=== PATIENT | female | born 1940 | race Two or more races ===

== ENCOUNTER 2022-06-18 11:28 | Inpatient (IN) | payer OTHER ==
[~2022-06-18] VITALS: Ht 162.6 cm; Wt 59.0 kg
[2022-06-18] MEDS ORDERED: PROSCAR5 MG PO (11:48)
--- NOTE | 2022-06-18 11:48 | NUR ---
PTE .SEDADA ESTA VIENE POR UN TRANSFER DEL POR FRACTURA DE CADERA LADO DERECHA
--- NOTE | 2022-06-18 12:19 | NUR ---
PACIENTE EVALUADO POR DR PENALOZA QUIEN ORDENA TARTAMIENTO. NICO STANFORD EDUCA ACERCA DE TRATAMIENTO ORDENADO Y EL MISMO REFIERE ENTENDER. SE REALIZA ANA DE MUESTRA MEDIANTES MEDIDAS ASEPTICAS. PACIENTE EN ESPERA DE RESULTADOS DE LABORATORIO.
== END 2022-06-27 22:25 | disposition home or self-care (01) | DRG 480 ==
LOC: ER 11:28 → SURH 16:32 → SEC-K 16:32 → SURH 19:15
PROVIDERS: Orthopaedic Surgery; ADMIT Internal Medicine; ATTEND Internal Medicine
PROC: 0PSH06Z Reposition Right Radius with Intramedullary Internal Fixation Device, Open Approach (ICD-10-PCS; 2022-06-19)
PROC: 0QS606Z Reposition Right Upper Femur with Intramedullary Internal Fixation Device, Open Approach (ICD-10-PCS; principal; 2022-06-19 08:00)
PROC: 5A0955A Assistance with Respiratory Ventilation, Greater than 96 Consecutive Hours, High Flow/Velocity Cannula (ICD-10-PCS; 2022-06-22)
PROC: 30233N1 Transfusion of Nonautologous Red Blood Cells into Peripheral Vein, Percutaneous Approach (ICD-10-PCS; 2022-06-23)
PROC: B020ZZZ Computerized Tomography (CT Scan) of Brain (ICD-10-PCS; 2022-06-24)
PROC: 0BH17EZ Insertion of Endotracheal Airway into Trachea, Via Natural or Artificial Opening (ICD-10-PCS; 2022-06-25)
PROC: 5A1935Z Respiratory Ventilation, Less than 24 Consecutive Hours (ICD-10-PCS; 2022-06-25)
DX: S72.141A Displaced intertrochanteric fracture of right femur, initial encounter for closed fracture (principal); I63.9 Cerebral infarction, unspecified; D62 Acute posthemorrhagic anemia; S52.591A Other fractures of lower end of right radius, initial encounter for closed fracture; E87.6 Hypokalemia; R09.02 Hypoxemia; F03.90 Unspecified dementia, unspecified severity, without behavioral disturbance, psychotic disturbance, mood disturbance, and anxiety; I10 Essential (primary) hypertension; W18.09XA Striking against other object with subsequent fall, initial encounter; Y93.01 Activity, walking, marching and hiking; Y92.019 Unspecified place in single-family (private) house as the place of occurrence of the external cause; Y99.9 Unspecified external cause status

== ENCOUNTER 2022-06-30 13:41 | Emergency (ER) | payer OTHER ==
[~2022-06-30] VITALS: Ht 162.6 cm; Wt 54.4 kg
[~2022-06-30 13:41] MED LIST: PROSCAR5 MG PO
== END 2022-06-30 23:40 | disposition home or self-care (01) ==
LOC: ER 13:41
DX: R06.02 Shortness of breath (principal); E86.0 Dehydration; Z88.8 Allergy status to other drugs, medicaments and biological substances; Z88.5 Allergy status to narcotic agent; Z20.822 Contact with and (suspected) exposure to COVID-19

== ENCOUNTER 2023-07-08 09:57 | Outpatient (CLI) | payer OTHER | END 2023-07-08 09:59 | disposition home or self-care (01) | LOC: NUCLEAR 09:57 | PROVIDERS: ATTEND Internal Medicine | DX: I50.32 Chronic diastolic (congestive) heart failure (principal); I27.81 Cor pulmonale (chronic) ==

== ENCOUNTER 2023-08-06 10:20 | Emergency (ER) | payer OTHER ==
[~2023-08-06] VITALS: Ht 152.4 cm; Wt 54.4 kg
[2023-08-06] MEDS ORDERED: LAMOTRIGINE200 MG (10:29)
[2023-08-06] MEDS ORDERED: RISPERDAL1 MG (10:30)
[2023-08-06] MEDS ORDERED: NITROGLYCERIN0.4 MG (10:30)
[2023-08-06] MEDS ORDERED: AMLODIPINE-BEN1 EAC4 (10:31)
[2023-08-06] MEDS ORDERED: PEPCID AC20 MG (10:31)
[2023-08-06] MEDS ORDERED: CELECOXIB200 MG PO (10:31)
[2023-08-06] MEDS ORDERED: MIRTAZAPINE30 M1 (10:32)
[2023-08-06] MEDS ORDERED: FOLIC ACID20 MG (10:32)
[2023-08-06 11:46] LABS: HEMATOCRIT 38.7 % (36.0-45.00); HEMOGLOBIN 13.2 g/dL (12.0-15.00); MEAN CELL VOLUME 94.5 fL (80.00-100.00); MEAN CORPUSCULAR HEMOGLOBIN 32.2 pg (27.00-32.0); MEAN CORPUSCULAR HGB CONC 34.1 g/dl (32.0-36.0); PLATELET COUNT 167 K/uL (150-450); RED BLOOD COUNT 4.09 M/uL (4.00-6.00); RED CELL DISTRIBUTION WIDTH 14.5 % (11.5-14.5)
[2023-08-06 12:12] LABS: CALCIUM 8.9 mg/dL (8.5-10.1); CREATININE SERUM 0.63 mg/dL (0.55-1.02); GFR 89.81; POTASSIUM 3.14 mEq/L (3.5-5.1)
== END 2023-08-06 21:22 | disposition home or self-care (01) ==
LOC: ER 10:20
PROVIDERS: General Practice
DX: S70.02XA Contusion of left hip, initial encounter (principal); W19.XXXA Unspecified fall, initial encounter; Y93.89 Activity, other specified; Y92.091 Bathroom in other non-institutional residence as the place of occurrence of the external cause; Y99.8 Other external cause status; I10 Essential (primary) hypertension; E11.9 Type 2 diabetes mellitus without complications; Z88.6 Allergy status to analgesic agent; Z88.8 Allergy status to other drugs, medicaments and biological substances